=== PATIENT | female | born 1965 | race Caucasian/White ===

== ENCOUNTER → 2018-03-10 | Outpatient (REF) ==
--- NOTE | 2018-03-10 11:27 | EKG ---
FACILITY: [facility] [place] PATIENT NAME: JOEY WHITE : [id number] MR: [id number] V: [id number] EXAM DATE: ORDERING PHYSICIAN: FLACA VALLADARES TECHNOLOGIST: BERTRAND Broussard Reason : TACHYCARDIA Blood Pressure : / mmHG Vent. Rate : 080 BPM Atrial Rate : 080 BPM P-R Int : 162 ms QRS Dur : 070 ms QT Int : 374 ms P-R-T Axes : 026 012 035 degrees QTc Int : 431 ms Normal sinus rhythm Normal ECG Confirmed by SAIDA SERRANO ([id number] on 03/11/2018 6:51:28 AM Referred By: Confirmed By:SAIDA SERRANO
== END ==
LOC: RESP 11:06
PROVIDERS: ATTEND Nurse Practitioner
DX: R00.0 Tachycardia, unspecified (principal)
CPT/HCPCS: 93005